=== PATIENT | male | born 1995 | race African-American/Black ===

== ENCOUNTER 2018-10-12 18:52 | Emergency (ER) | payer OTHER ==
[~2018-10-12] VITALS: Ht 170.2 cm; Wt 72.7 kg
[2018-10-12] MEDS ORDERED: IBUPROFEN 600 MG TAB PO ONE (20:15)
[2018-10-12 20:58] LABS: INFLUENZA A AMPLIFICATION NEGATIVE (NEGATIVE); INFLUENZA B AMPLIFICATION NEGATIVE (NEGATIVE)
[2018-10-12 21:19] VITALS: BP 145/86
== END 2018-10-12 21:25 | disposition home or self-care (01) ==
LOC: M ED 18:52
DX: J06.9 Acute upper respiratory infection, unspecified (principal)